=== PATIENT | female | born 1975 | race American Indian/Alaskan Native ===

== ENCOUNTER 2016-11-18 17:59 | Emergency (ER) | payer OTHER, BC ==
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
[2016-11-18 23:20] VITALS: BP 116/77
== END 2016-11-18 23:19 | disposition home or self-care (01) ==
LOC: ED 17:59
DX: M79.1 Myalgia (principal); M54.5 Low back pain; J45.909 Unspecified asthma, uncomplicated; V89.2XXA Person injured in unspecified motor-vehicle accident, traffic, initial encounter; Y93.89 Activity, other specified; Y99.8 Other external cause status; Y92.488 Other paved roadways as the place of occurrence of the external cause; Z88.1 Allergy status to other antibiotic agents; Z88.8 Allergy status to other drugs, medicaments and biological substances
CPT/HCPCS: 99282

== ENCOUNTER 2016-12-16 03:39 | Emergency (ER) | payer BC, OTHER ==
[2016-12-16 04:41] LABS: Basophils % (Auto) 0.2 % (0.0-1.8); Hematocrit 38.1 % (30.3-42.9); Hemoglobin 12.3 gm/dl (10.1-14.3); Mean Corpuscular HGB Conc 32 % (30-34); Mean Corpuscular Hemoglobin 27 pg (28-32); Mean Corpuscular Volume 85 fl (79-97); Platelet Count 180 K/mm3 (140-440); Red Blood Count 4.51 M/mm3 (3.65-5.03); Red Cell Distribution Width 13.8 % (13.2-15.2); White Blood Count 4.9 K/mm3 (4.5-11.0)
[2016-12-16 04:56] LABS: Anion Gap 16 mmol/L; Blood Urea Nitrogen 6 mg/dL (7-17); Calcium 8.7 mg/dL (8.4-10.2); Carbon Dioxide 26 mmol/L (22-30); Chloride 104.3 mmol/L (98-107); Glucose 93 mg/dL (65-100); Sodium 142 mmol/L (137-145)
--- NOTE | 2016-12-16 13:24 | Emergency Department Report ---
ED Chest Pain HPI - General Chief Complaint: Chest Pain Stated Complaint: CHEST PAIN Time Seen by Provider: 12/16/16 12:08 Source: patient Mode of arrival: Ambulatory Limitations: No Limitations - History of Present Illness MD Complaint: chest pain -: Gradual, days(s) Onset: during rest Pain Location: substernal Pain Radiation: none Severity: mild Severity scale (0 -10): 1 Quality: aching, heaviness Consistency: intermittent Improves With: nothing Worsens With: nothing re: denies: nausea, vomting, diaphoresis, dyspnea, sense of impending doom Other Symptoms: denies: cough, fever, syncope, rash, acid taste in mouth, leg swelling, palpitations, burping - Related Data Previous Rx's Medication Instructions Recorded Last Taken Type Hydrocodone Bit/Acetaminophen 1 each PO Q6H PRN #12 tablet 06/25/13 Unknown Rx [Lortab 5-500 Tablet] Hydrocodone Bit/Acetaminophen 1 each PO Q4-6H PRN #10 tablet 06/29/13 Unknown Rx [Lortab 5-500 Tablet] Omeprazole [PriLOSEC] 20 mg PO BID #30 cap 03/25/14 Unknown Rx Ondansetron [Zofran Odt] 4 mg PO Q6H #14 tab.rapdis 03/25/14 Unknown Rx Cyclobenzaprine [Flexeril] 10 mg PO QHS #25 tablet 11/18/16 Unknown Rx Ibuprofen [Motrin] 800 mg PO Q8HR PRN #30 tablet 11/18/16 Unknown Rx Allergies Allergy/AdvReac Type Severity Reaction Status Date / Time amoxicillin [Amoxicillin] Allergy Rash Verified 06/25/13 12:16 clindamycin Allergy Rash Verified 11/18/16 18:53 oxycodone [Oxycodone] Allergy Rash Verified 06/25/13 12:16 Tetracyclines Allergy Rash Verified 06/25/13 12:16 tramadol HCl [From Ultram] Allergy Rash Verified 06/25/13 12:16 vancomycin Allergy Rash Verified 11/18/16 18:53 Heart Score - HEART Score History: Slightly suspicious EKG: Non-specific Age: < 45 Risk factors: No known risk factors Troponin: < normal limit HEART Score: 1 ED Review of Systems ROS: Stated complaint: CHEST PAIN Other details as noted in HPI Other: GENERAL: No weight change, fatigue, weakness, fever, chills, or night sweats SKIN: No changes in skin or hair, no itching, no rashes, no jaundice HEAD: No trauma, headache, or visual changes EYES: No blurriness, tearing, itching, acute visual loss, conjunctival discoloration, or scleral icterus EARS: No hearing loss, tinnitus, vertigo, or earache NOSE: No rhinorrhea, stuffiness, sneezing, itching, or epistaxis MOUTH: No bleeding gums, hoarseness, sore throat, or swelling CARDIAC: chest pain RESPIRATORY: No shortness of breath, wheeze, cough, sputum production, hemoptysis, pneumonia, asthma, bronchitis, or emphysema GI: No change in appetite, nausea, vomiting, dysphagia, change in bowel frequency, diarrhea, constipation, bleeding, hematemesis, melena, hematochezia, or abdominal pain URINARY: No frequency, urgency, polyuria, dysuria, hematuria, or incontinence MUSCULOSKELETAL: No muscle weakness, joint stiffness, decrease in range of motion, redness, swelling, tenderness NEUROLOGIC: No loss of sensation, numbness, tingling, tremors, weakness, paralysis, seizures HEMATOLOGIC: No anemia, easy bruising, bleeding, petechiae, or purpura ENDOCRINE: No hot or cold intolerance, sweating, polyuria, polydipsia or, polyphagia no thyroid problems PSYCHIATRIC: No change in mood, no anxiety, no depression ED Past Medical Hx - Past Medical History Previous Medical History?: Yes Hx Asthma: Yes Additional medical history: states has hx of blood clot somewhere but doesnt know where - Surgical History Past Surgical History?: Yes Additional Surgical History: R. knee surgery 2014, and R. ankle surg 2000 - Social History Smoking Status: Never Smoker - Medications Home Medications: Home Medications Medication Instructions Recorded Confirmed Last Taken Type Hydrocodone Bit/Acetaminophen 1 each PO Q6H PRN #12 tablet 06/25/13 Unknown Rx [Lortab 5-500 Tablet] Hydrocodone Bit/Acetaminophen 1 each PO Q4-6H PRN #10 tablet 06/29/13 Unknown Rx [Lortab 5-500 Tablet] Omeprazole [PriLOSEC] 20 mg PO BID #30 cap 03/25/14 Unknown Rx Ondansetron [Zofran Odt] 4 mg PO Q6H #14 tab.rapdis 03/25/14 Unknown Rx Cyclobenzaprine [Flexeril] 10 mg PO QHS #25 tablet 11/18/16 Unknown Rx Ibuprofen [Motrin] 800 mg PO Q8HR PRN #30 tablet 11/18/16 Unknown Rx ED Physical Exam - General Limitations: No Limitations - Other Other exam information: GENERAL: Patient in no acute distress HEAD: Normocephalic, atraumatic EYES: PERRLA, EOM intact, no scleral icterus, no conjunctival hemorrhage, visual salmeron and acuity wnl, NOSE: No tenderness, discharge, sinus tenderness MOUTH: No erythema, bleeding, exudate HEART: Regular rate and rhythm, no murmur, S1-S2 are auscultated, pulses are symmetric LUNGS: No wheezing, rales, rhonchi, bilateral breath sounds ABDOMEN: Normal bowel sounds, no tenderness, no rebound, no guarding, no masses , no CVA tenderness MUSCULOSKELETAL: Normal joint range of motion, no redness, no swelling, no tenderness NEUROLOGIC: GCS 15, Alert and Oriented x3, Cranial nerves intact, normal sensation, normal strength, normal gait, no cerebellar deficit PSYCHIATRIC: No homicidal or suicidal ideation, no anxiety, no depression, no hallucinations SKIN: Skin is warm and dry, no wounds, no rashes ED Course Vital Signs 12/16/16 12/16/16 12/16/16 03:52 12:05 12:11 Temperature 98.6 F Pulse Rate 88 73 70 Respiratory 14 19 14 Rate Blood Pressure 122/80 O2 Sat by Pulse 100 100 100 Oximetry 12/16/16 12:19 Temperature Pulse Rate Respiratory 14 Rate Blood Pressure O2 Sat by Pulse 100 Oximetry EDISON score - Edison Score Age > 65: (0) No Aspirin use within the Past 7 Days: (0) No 3 or more CAD Risk Factors: (0) No 2 or more Angina events in past 24 hrs: (0) No Known CAD with more than 50% Stenosis: (0) No Elevated Cardiac Markers: (0) No ST Deviation Greater than 0.5mm: (0) No EDISON Score: 0 ED Medical Decision Making - Lab Data Result diagrams: 12/16/16 04:13 12/16/16 04:13 - EKG Data When compared to previous EKG there are: changes noted - Radiology Data Radiology results: report reviewed - Medical Decision Making Patient comfortable. Updated with results. Plan discharge with outpatient follow-up. Patient agrees with plan and will return if symptoms worsen. Critical care attestation.: If time is entered above; I have spent that time in minutes in the direct care of this critically ill patient, excluding procedure time. ED Disposition Clinical Impression: Chest pain Qualifiers: Chest pain type: unspecified Qualified Code(s): R07.9 - Chest pain, unspecified Disposition: - TO HOME OR SELFCARE Is pt being admited?: No Condition: Stable Instructions: Chest Pain (ED) Referrals: PRIMARY MD YEVGENIY [Primary Care Provider] - 2-3 Days COURTNEY LEES MD [Staff Physician] - 2-3 Days Time of Disposition: 13:23
--- NOTE | 2016-12-16 14:25 | XRay Report ---
PA and lateral chest: Chest pain. There is a dextroscoliosis of the thoracolumbar spine. The lungs are clear. Mediastinal contour is unremarkable. No focal bone lesion identified. Impression: No acute finding.
[2016-12-16 14:45] VITALS: BP 134/70
== END 2016-12-16 14:51 | disposition home or self-care (01) ==
LOC: ED 03:39
DX: R07.2 Precordial pain (principal); J45.909 Unspecified asthma, uncomplicated; Z98.890 Other specified postprocedural states; Z88.1 Allergy status to other antibiotic agents
CPT/HCPCS: 36415; 71020; 80048; 81025; 84484; 85025; 85379; 93005; 93010; 99284

== ENCOUNTER 2016-12-31 09:41 | Outpatient (CLI) | payer BC ==
--- NOTE | 2016-12-31 13:28 | Mammography Report ---
BILATERAL DIGITAL SCREENING MAMMOGRAM with CAD: 12/31/16 CLINICAL: Routine screening. COMPARISON:12/13/15 FINDINGS: The breasts are heterogeneously dense, which may obscure small masses. No mass, architectural distortion or suspicious calcifications. IMPRESSION: No mammographic evidence of malignancy. BI-RADS CATEGORY: 1 - - Negative RECOMMENDATION: Routine mammographic screening in one year. COMMENT: Patient follow-up letters are generated by our [employer] application.
== END 2016-12-31 09:42 | disposition home or self-care (01) ==
LOC: SPVWC 09:41
PROVIDERS: ATTEND Internal Medicine
DX: Z12.31 Encounter for screening mammogram for malignant neoplasm of breast (principal); J45.909 Unspecified asthma, uncomplicated
CPT/HCPCS: 77067; G0202

== ENCOUNTER 2019-04-29 00:17 | Emergency (ER) | payer BC, OTHER ==
[2019-04-29 02:10] LABS: HCG Qualitative,Urine Negative (Negative)
[2019-04-29 02:12] LABS: Bilirubin,Urine NEG (Negative); Blood,Urine NEG (Negative); Color,Urine Amber (Yellow); Mucus,Urine FEW /HPF; Protein,Urine <15 mg/dL mg/dL (Negative)
--- NOTE | 2019-04-29 02:15 | Emergency Department Report ---
ED Abdominal Pain HPI - General Chief Complaint: Abdominal Pain Stated Complaint: BLOOD IN URINE, DIZZINESS, ABD PAIN, FEVER Time Seen by Provider: 04/29/19 01:48 Source: patient Mode of arrival: Ambulatory Limitations: No Limitations - History of Present Illness Initial Comments: This is a 43-year-old female here with abdominal pain to her left lower abdomen and pelvic area and said that she saw some blood in her urine and she felt dizzy 2 days. She reports that she has some nausea but no vomiting and she had a fever of 102.7 at home where she took ibuprofen at 6 AM this morning. Denies any back pain or any vaginal bleeding at present. Patient said that she has IUD in. Abdominal pain is 7 out of 10 and cramp.. She said her period is a regular and last menstrual period was 12/16/2016 but she has had IUD in. She has a history of asthma and blood clots but does not know where. History of right knee surgery and right ankle surgery. Patient denies any chest pain, cough shortness of breath or back pain. MD Complaint: abdominal pain Onset/Timin -: days(s) Location: LLQ Radiation: none Migration to: no migration Severity: severe Severity scale (0 -10): 7 Quality: cramping Consistency: intermittent Improves With: nothing Worsens With: nothing Context: other (possible urinary tract infection as similar thing happened with her when she has a urinary tract infection) Associated Symptoms: nausea, fever, dysuria, hematuria, other (dizziness). denies: vomiting, diarrhea, chills, constipation, hematemesis, hematochezia, melena, anorexia, syncope Treatments Prior to Arrival: NSAIDs - Related Data Previous Rx's Medication Instructions Recorded Last Taken Type Hydrocodone Bit/Acetaminophen 1 each PO Q6H PRN #12 tablet 06/25/13 Unknown Rx [Lortab 5-500 Tablet] Hydrocodone Bit/Acetaminophen 1 each PO Q4-6H PRN #10 tablet 06/29/13 Unknown Rx [Lortab 5-500 Tablet] Omeprazole [PriLOSEC] 20 mg PO BID #30 cap 03/25/14 Unknown Rx Cyclobenzaprine [Flexeril] 10 mg PO QHS #25 tablet 11/18/16 Unknown Rx Ibuprofen [Motrin] 800 mg PO Q8HR PRN #30 tablet 11/18/16 Unknown Rx Acetaminophen [Acetaminophen 8 650 mg PO Q6H PRN #12 tablet.er 04/29/19 Unknown Rx Hour] Ondansetron [Zofran ODT TAB] 4 mg PO Q6H PRN #12 tab.rapdis 04/29/19 Unknown Rx Sulfamethoxazole/Trimethoprim 1 each PO BID 7 Days #14 tablet 04/29/19 Unknown Rx [Bactrim DS TAB] Allergies Allergy/AdvReac Type Severity Reaction Status Date / Time amoxicillin [Amoxicillin] Allergy Rash Verified 06/25/13 12:16 clindamycin Allergy Rash Verified 11/18/16 18:53 oxycodone [Oxycodone] Allergy Rash Verified 06/25/13 12:16 Tetracyclines Allergy Rash Verified 06/25/13 12:16 tramadol HCl [From Ultram] Allergy Rash Verified 06/25/13 12:16 vancomycin Allergy Rash Verified 11/18/16 18:53 ED Review of Systems ROS: Stated complaint: BLOOD IN URINE, DIZZINESS, ABD PAIN, FEVER Other details as noted in HPI Constitutional: chills, fever ENT: denies: throat pain, congestion Respiratory: denies: cough Cardiovascular: denies: chest pain, palpitations, edema, syncope Gastrointestinal: abdominal pain, nausea. denies: vomiting, diarrhea, constipation, hematemesis, hematochezia Genitourinary: dysuria, hematuria, abnormal menses (due to IUD). denies: urgency, frequency, discharge, dyspareunia Musculoskeletal: denies: back pain, joint swelling, arthralgia, myalgia Skin: denies: rash Neurological: other (dizziness). denies: headache ED Past Medical Hx - Past Medical History Previous Medical History?: Yes Hx Asthma: Yes Additional medical history: states has hx of blood clot somewhere but doesnt know where - Surgical History Past Surgical History?: Yes Additional Surgical History: R. knee surgery 2014, and R. ankle surg 2000 - Family History Family history: hypertension - Social History Smoking Status: Never Smoker Substance Use Type: None - Medications Home Medications: Home Medications Medication Instructions Recorded Confirmed Last Taken Type Hydrocodone Bit/Acetaminophen 1 each PO Q6H PRN #12 tablet 06/25/13 Unknown Rx [Lortab 5-500 Tablet] Hydrocodone Bit/Acetaminophen 1 each PO Q4-6H PRN #10 tablet 06/29/13 Unknown Rx [Lortab 5-500 Tablet] Omeprazole [PriLOSEC] 20 mg PO BID #30 cap 03/25/14 Unknown Rx Cyclobenzaprine [Flexeril] 10 mg PO QHS #25 tablet 11/18/16 Unknown Rx Ibuprofen [Motrin] 800 mg PO Q8HR PRN #30 tablet 11/18/16 Unknown Rx Acetaminophen [Acetaminophen 8 650 mg PO Q6H PRN #12 tablet.er 04/29/19 Unknown Rx Hour] Ondansetron [Zofran ODT TAB] 4 mg PO Q6H PRN #12 tab.rapdis 04/29/19 Unknown Rx Sulfamethoxazole/Trimethoprim 1 each PO BID 7 Days #14 tablet 04/29/19 Unknown Rx [Bactrim DS TAB] ED Physical Exam - General Limitations: No Limitations General appearance: alert, in no apparent distress - Head Head exam: Present: atraumatic, normocephalic - Eye Eye exam: Present: normal appearance, PERRL, EOMI Pupils: Present: normal accommodation - Neck Neck exam: Present: normal inspection, full ROM. Absent: tenderness, lymphadenopathy - Respiratory Respiratory exam: Present: normal lung sounds bilaterally. Absent: respiratory distress, chest wall tenderness - Cardiovascular Cardiovascular Exam: Present: regular rate, normal rhythm, normal heart sounds - GI/Abdominal GI/Abdominal exam: Present: soft, normal bowel sounds. Absent: distended, tenderness, guarding, rebound, rigid, organomegaly - Extremities Exam Extremities exam: Present: normal inspection, full ROM, normal capillary refill, other (No cce. + 2 pulses in all extremities, no neurovascular compromise). Absent: tenderness, pedal edema, joint swelling, calf tenderness - Back Exam Back exam: Present: normal inspection, full ROM, other (ambulates without any difficulties). Absent: tenderness, CVA tenderness (R), CVA tenderness (L), muscle spasm, paraspinal tenderness, vertebral tenderness, rash noted - Neurological Exam Neurological exam: Present: alert, oriented X3, normal gait - Psychiatric Psychiatric exam: Present: normal affect, normal mood - Skin Skin exam: Present: warm, dry, intact, normal color. Absent: rash ED Course Vital Signs 04/29/19 04/29/19 00:45 03:26 Temperature 99.0 F Pulse Rate 94 H Respiratory 14 16 Rate Blood Pressure 145/82 O2 Sat by Pulse 99 Oximetry - Reevaluation(s) Reevaluation #1: 04/29/19 05:12 Patient received Bactrim DS 1 tablet to cover urinary tract infection and given prescription for Bactrim DS along with lab results and need to follow-up in 3-5 days or return to the emergency room if she feels worse. She voiced understanding. ED Medical Decision Making - Lab Data Result diagrams: 04/29/19 03:34 04/29/19 03:34 Lab Results 04/29/19 04/29/19 04/29/19 Range/Units 03:34 03:34 Unknown WBC 4.6 (4.5-11.0) K/mm3 RBC 4.44 (3.65-5.03) M/mm3 Hgb 12.4 (10.1-14.3) gm/dl Hct 38.4 (30.3-42.9) % MCV 87 (79-97) fl MCH 28 (28-32) pg MCHC 32 (30-34) % RDW 13.8 (13.2-15.2) % Plt Count 190 (140-440) K/mm3 Lymph % (Auto) 43.0 H (13.4-35.0) % [place] % (Auto) 10.6 H (0.0-7.3) % Eos % (Auto) 1.8 (0.0-4.3) % Baso % (Auto) 0.5 (0.0-1.8) % Lymph # 2.0 (1.2-5.4) K/mm3 [place] # 0.5 (0.0-0.8) K/mm3 Eos # 0.1 (0.0-0.4) K/mm3 Baso # 0.0 (0.0-0.1) K/mm3 Seg Neutrophils % 44.1 (40.0-70.0) % Seg Neutrophils # 2.0 (1.8-7.7) K/mm3 Sodium 139 (137-145) mmol/L Potassium 3.8 (3.6-5.0) mmol/L Chloride 102.5 (98-107) mmol/L Carbon Dioxide 25 (22-30) mmol/L Anion Gap 15 mmol/L BUN 11 (7-17) mg/dL Creatinine 0.4 L (0.7-1.2) mg/dL Estimated GFR > 60 ml/min BUN/Creatinine Ratio 28 % Glucose 91 (65-100) mg/dL Calcium 8.9 (8.4-10.2) mg/dL Urine Color Una (Yellow) Urine Turbidity Clear (Clear) Urine pH 5.0 (5.0-7.0) Ur Specific [place] 1.023 (1.003-1.030) Urine Protein <15 mg/dl (Negative) mg/dL Urine Glucose (UA) Neg (Negative) mg/dL Urine Ketones Neg (Negative) mg/dL Urine Blood Neg (Negative) Urine Nitrite Pos (Negative) Ur Reducing Substances Not Reportable Urine Bilirubin Neg (Negative) Urine Ictotest Not Reportable Urine Urobilinogen 4.0 (<2.0) mg/dL Ur Leukocyte Esterase Neg (Negative) Urine WBC (Auto) 2.0 (0.0-6.0) /HPF Urine RBC (Auto) 11.0 (0.0-6.0) /HPF U Epithel Cells (Auto) 1.0 (0-13.0) /HPF Urine Mucus Few /HPF Urine HCG, Qual Negative (Negative) Urine culture sent and pending - Medical Decision Making A showed positive nitrite in urine would all other components stable. Urine culture was sent. She is having urinary burning and reported that she was having fever and some blood in her urine therefore patient will be covered for urinary tract infection. She was given Bactrim DS one tablet by mouth in emergency room and given good Rx prescription card to get Bactrim at [facility] which is the least expensive place and she says she will be able to afford that. The signs are stable she is afebrile. I discussed her CBC and BMP along with test. Diagnosis and medication treatment plan discussed that she voiced understanding No pain at present. She had no episode of vaginal bleeding and in emergency room. I encouraged her to increase her fluid intake and to rest for a couple days and if sure symptoms worsens, increased weakness, dizziness, fever and/or chills persisting despite taking Tylenol, weakness to return to the emergency room SUSAN otherwise follow-up at her primary care physician and if she does not have a primary care physician to follow-up with [facility] - Differential Diagnosis pyelonephritis, UTI, Critical care attestation.: If time is entered above; I have spent that time in minutes in the direct care of this critically ill patient, excluding procedure time. ED Disposition Clinical Impression: Acute cystitis without hematuria Abdominal pain Qualifiers: Abdominal location: left lower quadrant Qualified Code(s): R10.32 - Left lower quadrant pain Disposition: TO HOME OR SELFCARE Is pt being admited?: No Does the pt Need Aspirin: No Condition: Stable Instructions: Abdominal Pain (ED), Dysuria (ED), Urinary Tract Infection in Women (ED) Additional Instructions: Follow-up with primary care physician in 3-5 days and if he do not have a primary care physician follow-up at [facility] as directed Take Bactrim as instructed Increase your fluid intake to least 2-3 L of water or cranberry juice daily A Tylenol 650 mg as instructed for fever and/or pain Few symptoms return or worsens, please return to the emergency room SUSAN Prescriptions: Acetaminophen [Acetaminophen 8 Hour] 650 mg PO Q6H PRN #12 tablet.er PRN Reason: abdominal pain and/or fever Sulfamethoxazole/Trimethoprim [Bactrim DS TAB] 1 each PO BID 7 Days #14 tablet Ondansetron [Zofran ODT TAB] 4 mg PO Q6H PRN #12 tab.rapdis PRN Reason: nausea and her vomiting Referrals: KANDI UL MD [Primary Care Provider] - 3-5 Days Forms: Work/School Release Form(ED)
[2019-04-29] MEDS ORDERED: ACETAMINOPHEN 325 MG TAB PO ONE (03:20)
[2019-04-29 03:49] LABS: Basophils % (Auto) 0.5 % (0.0-1.8); Eosinophils # (Auto) 0.1 K/mm3 (0.0-0.4); Eosinophils % (Auto) 1.8 % (0.0-4.3); Hematocrit 38.4 % (30.3-42.9); Hemoglobin 12.4 gm/dl (10.1-14.3); Mean Corpuscular HGB Conc 32 % (30-34); Mean Corpuscular Volume 87 fl (79-97); Monocytes # (Auto) 0.5 K/mm3 (0.0-0.8); Monocytes % (Auto) 10.6 % (0.0-7.3); Platelet Count 190 K/mm3 (140-440); Red Blood Count 4.44 M/mm3 (3.65-5.03); Red Cell Distribution Width 13.8 % (13.2-15.2)
[2019-04-29 04:09] LABS: BUN/Creatinine Ratio 28; Blood Urea Nitrogen 11 mg/dL (7-17); Calcium 8.9 mg/dL (8.4-10.2); Hemolysis Index 18
[2019-04-29] MEDS ORDERED: SULFAMETHOXAZOLE/TRIMETHOPRIM 800/160MG DS TAB PO ONE (04:45)
[2019-04-29 06:26] VITALS: BP 122/80
== END 2019-04-29 06:00 | disposition home or self-care (01) ==
LOC: ED 00:17
DX: N30.00 Acute cystitis without hematuria (principal); J45.909 Unspecified asthma, uncomplicated; Z79.899 Other long term (current) drug therapy; Z98.890 Other specified postprocedural states; Z88.1 Allergy status to other antibiotic agents; Z88.5 Allergy status to narcotic agent; Z88.8 Allergy status to other drugs, medicaments and biological substances
CPT/HCPCS: 36415; 80048; 81001; 81025; 85025; 87086

== ENCOUNTER 2021-08-01 08:37 | Day surgery (SDC) | payer OTHER ==
[~2021-08-01 08:37] MED LIST: SODIUM CHLORIDE 0.9% 1000 ML 1,000 ML IV SCH
[2021-08-01] MEDS ORDERED: ONDANSETRON 4 MG/2 ML INJ IV PRN (10:11)
--- NOTE | 2021-08-01 10:11 | Anesthesia Consultation ---
Anesthesia Consult and Med Hx Date of service: 08/01/21 - Airway Anesthetic Teeth Evaluation: Good ROM Head & Neck: Adequate Mental/Hyoid Distance: Adequate Mallampati Class: Class I Intubation Access Assessment: Good - Pre-Operative Health Status ASA Pre-Surgery Classification: ASA1 Proposed Anesthetic Plan: MAC - Pulmonary Hx Smoking: No Hx Respiratory Symptoms: No - Cardiovascular System Hx Hypertension: No - Central Nervous System CVA: No - Endocrine Hx Renal Disease: No Hx Liver Disease: No Hx Insulin Dependent Diabetes: No Hx Non-Insulin Dependent Diabetes: No Hx Thyroid Disease: No - Other Systems Hx Obesity: No - Additional Comments Anesthesia Medical History Comments: Hx PONV after GA for knee arthroscopy.
--- NOTE | 2021-08-01 10:11 | Anesthesia Day of Surgery ---
Anesthesia Day of Surgery - Day of Surgery Patient Examined: Yes Patient H&P Reviewed: Yes Patient is NPO: Yes
[2021-08-01] MEDS ORDERED: propofoL 200 MG/20 ML VIAL IV ONE ×2 (10:17→10:30)
--- NOTE | 2021-08-01 10:57 | Procedure Note ---
Date of procedure: 08/01/21 Pre-op diagnosis: Diarrhea/ R/O Colitis Post-op diagnosis: other (R/O Microscopic Colitis/ R/O Ileitis/ Moderate, Proximal Colon Diverticuli/ No colon Polyps noted/ Minor, Internal Hemorrhoids) Procedure: Colonoscopy with cold Biopsy Anesthesia: MAC Surgeon: ARACELIS LINO Estimated blood loss: minimal Pathology: list Specimen disposition: to lab Condition: stable Disposition: same day (Avoid aspirin and NSAID for 4 days; otherwise resumehome medication. Encourage fiber intakeand OTC Probiotic as suggested anduse prn OTC antidiarrhea medication ( eg Imodium AD). F/U in 1 to 2 weeks ([phone]).)
--- NOTE | 2021-08-01 11:29 | Operative Report ---
DATE OF SURGERY: 08/01/2021 INDICATIONS: This is a 45-year-old -Citizen Of [place] female in otherwise good health, who has lately been having persistent diarrhea. Colonoscopy was done to rule out for any associated colitis. DESCRIPTION OF PROCEDURE: Procedure was done after getting informed consent with MAC anesthesia. Initial rectal examination was unremarkable. Instrument was passed through the rectum onto the cecum, which was identified with ileocecal valve and appendiceal orifice. The terminal ileum was intubated, showed normal mucosa. Biopsy was done to rule out for possible ileitis. Cecum and ascending colon showed moderate diverticular disease. Random biopsies were done throughout the colon from the cecum, ascending colon, transverse colon, descending colon, and sigmoid to rule out for microscopic colitis and the rectum showed some minor internal hemorrhoid. There were no colon polyps noted. ASSESSMENT: Diarrhea, rule out colitis, rule out microscopic colitis, rule out ileitis, moderate proximal colon diverticula, and minor internal hemorrhoid. There was minimal bleeding associated with the procedure. No complications associated with the procedure. The patient will be asked to avoid aspirin and aspirin-related products for the next few days. Encouraged to take fiber supplements. Also, encouraged to take [id number] probiotics and antidiarrheal medication as needed and followup in the office in 1-2 weeks' time. Procedure was done in the GI lab with assistance of the GI lab team, which included the GI nurse, the design technology teacher and with assistance of anesthesia. TID: [id number] RECEIPT: [id number] ANATOLIY/ALYSSA/ARNEL
--- NOTE | 2021-08-01 11:29 | Post Anesthesia Evaluation ---
- Post Anesthesia Evaluation Patient Participated: Yes Airway Patent: Yes Stable Respiratory Function: Yes Nausea/Vomiting: No Temp > 96.8F: Yes Pain Manageable: Yes Adequeate Hydration: Yes Anesthesia Complications: No
[2021-08-01 13:55] VITALS: BP 126/78
== END 2021-08-01 11:25 | disposition home or self-care (01) ==
LOC: GIO 08:37
DX: R19.7 Diarrhea, unspecified (principal); Z20.822 Contact with and (suspected) exposure to COVID-19; K57.30 Diverticulosis of large intestine without perforation or abscess without bleeding; K64.8 Other hemorrhoids; K63.89 Other specified diseases of intestine; Z88.8 Allergy status to other drugs, medicaments and biological substances; Z79.899 Other long term (current) drug therapy
CPT/HCPCS: 45380; 88305; J2704; J7030; U0003; J7120; Q0162